=== PATIENT | male | born 1995 | race Caucasian/White ===

== ENCOUNTER 2018-10-19 21:31 | Emergency (ER) | payer MEDICAID, OTHER ==
[2018-10-19] MEDS: BACITRACIN 0.9 GM OINT TOP (23:11)
== END 2018-10-19 23:42 | disposition home or self-care (01) ==
LOC: FTE 21:31
DX: S00.81XA Abrasion of other part of head, initial encounter (principal); X58.XXXA Exposure to other specified factors, initial encounter; Y92.9 Unspecified place or not applicable
CPT/HCPCS: 99282; Z7502